=== PATIENT | female | born 1990 ===

== ENCOUNTER 2018-05-07 14:31 | Outpatient (REF) | payer BC, SELFPAY ==
[2018-05-11 14:41] LABS: Chlamydia Result Negative; GC Result Negative; Specimen Description URINE
== END 2018-05-07 14:51 ==
LOC: NCHCN 14:31
PROVIDERS: PCP Registered Nurse; Visit Provider Registered Nurse
DX: Z11.3 Encounter for screening for infections with a predominantly sexual mode of transmission (principal)
CPT/HCPCS: 87491; 87591